=== PATIENT | female | born 1955 | race Caucasian/White ===

== ENCOUNTER 2020-08-20 16:34 | Observation (INO) | payer OTHER ==
--- OUTSIDE RECORDS SUMMARY | 2020-08-20 16:36 | XMS REPORT | Continuity of Care Document ---
:1955 Author Organization [facility] t Address [address] [place] [address] Care Team Providers Name Role Phone Kunal High MD, Sander Primary Care Physician [phone] Lab, Fam Pob I Attending Clinician Unavailable Doctor Unassigned, Name Attending Clinician Unavailable Problems This patient has no known problems. Allergies, Adverse Reactions, Alerts This patient has no known allergies or adverse reactions. Family History Family Member Diagnosis Comments Start Date Stop Date Source Natural sister Cancer [facility] thodist Social History Social Habit Start Date Stop Date Quantity Comments Source Tobacco use and 2016-08-06 2016-08-06 Never used [facility] ethodist exposure 00:00:00 00:00:00 Alcohol intake 2016-08-06 2016-08-06 Current drinker [place] [facility] 00:00:00 00:00:00 of alcohol (finding) Alcohol Comment 2016-01-16 2016-01-16 only on special [place] [facility] 00:00:00 00:00:00 ocassions Sex [birth year] [facility] ethodist 00:00:00 00:00:00 Smoking Status Start Date Stop Date Source Never smoker [facility] Medications Ordered Filled Start Stop Current Ordering Indication Dosage Frequency Signature Comments Components Source Medication Medication Date Date Medication? Clinician (SIG) Name Name aspirin Yes 81mg QD Take 81 mg [place] (ECOTRIN) 4-12 by mouth Method i 81 MG 14:39: daily. st enteric 03 coated tablet aspirin-tremaine Yes 1{tbl} Q6H Take 1 [place] taminophen- 4-12 tablet by Met hodi caffeine 14:39: mouth st (EXCEDRIN 03 every 6 MIGRAINE) (six) 250-250-65 hours as mg per needed for tablet headaches (as needed). MELATONIN Yes Take by [place] ORAL 4-12 mouth. Methodi 14:39: st 03 ibuprofen Yes 100mg Q6H Take 100 [place] (ADVIL) 100 4-12 mg by Methodi MG tablet 14:39: mouth st 03 every 6 (six) hours as needed for mild pain. citalopram Yes 20mg QD Take 20 mg [place] (CeleXA) 20 4-12 by mouth Meth surinder MG tablet 14:39: daily. st 03 LISINOPRIL Yes 20mg QD Take 20 mg [place] ORAL 4-12 by mouth Methodi 14:39: daily. Per st 03 patient Only temporary will eventually go back to the original strength prescribed with the diuretic ondansetron 2015-04 Yes 4mg Q8H Take 1 [place] (ZOFRAN, 2-02 tablet (4 Met hodi HYDROCHLORI 00:00: mg total) s t DE,) 4 MG 00 by mouth tablet every 8 (eight) hours as needed for nausea or vomiting. conjugated Yes Every [place] estrogens 01-21 night for Metho di (PREMARIN) 00:00: [address] vaginal 00 then three cream times a week. DEXILANT 60 Yes [place] mg capsule 12-29 Methodi 00:00: st 00 metoprolol Yes Gutier[place] tartrate 12-26 Methodi (LOPRESSOR) 00:00: st 25 MG 00 tablet lisinopril- Yes [place] hydrochloro 12-26 Methodi thiazide 00:00: st (PRINZIDE,Z 00 ESTORETIC) 20-12.5 mg per tablet amLODIPine Yes Matt (NORVASC) 12-26 Methodi 10 MG 00:00: st tablet 00 glimepiride Yes [place] (AMARYL) 2 12-26 Methodi MG tablet 00:00: st 00 ALPRAZolam Yes Matt (XANAX) 0.5 8-31 Methodi MG tablet 00:00: st 00 metFORMIN 2016-0 Yes Matt (FORTAMET) 8-23 Methodi 1000 MG 00:00: st (OSM) 24 hr 00 tablet Procedures This patient has no known procedures. Plan of Care Planned Activity Planned Date Details Comments Source Future Scheduled 2020-11-25 INFLUENZA VACCINE [facility] 00:00:00 [code = INFLUENZA VACCINE] Future Scheduled 2019 65+ PNEUMOCOCCAL [facility] 00:00:00 VACCINE (1 of 1 - PPSV23) [code = 65+ PNEUMOCOCCAL VACCINE (1 of 1 - PPSV23)] Future Scheduled 2004-02-07 BREAST CANCER [place] [facility] Test 00:00:00 SCREENING [code = BREAST CANCER SCREENING] Future Scheduled 2004-02-07 COLONOSCOPY SCREENING Ho shobha [facility] 00:00:00 [code = COLONOSCOPY SCREENING] Future Scheduled 2004-02-07 SHINGLES VACCINES (#1) H michel [facility] Test 00:00:00 [code = SHINGLES VACCINES (#1)] Future Scheduled 1970 COVID-19 VACCINE (1) Rocíoharrison zambrano [facility] Test 00:00:00 [code = COVID-19 VACCINE (1)] Encounters Start End Encounter Admission Attending Care Care Encounter Source Date/Time Date/Time Type Type Clinicians Facility Department ID 2020-05-28 2020-05-28 Laboratory Lab, [facility] [id number] 13:42:40 14:02:40 Only Fam P[facility] Health [id number] [place] [id number] Professio [id number] nal [address] 2020-05-08 2020-05-08 Laboratory Lab, [facility] [id number] 15:40:53 16:09:16 Only Fam Pob I Health [id number] [place] [id number] Professio [phone] nal 044 [address] 2020-05-08 2020-05-08 Letter Doctor GUSTAFSON [id number] 00:00:00 00:00:00 (Out) Unassigned, BRAULIO [id number] [place] [facility] [id number] 2020-05-08 2020-05-08 Letter Doctor S[place] [id number] 00:00:00 00:00:00 (Out) Unassigned, BRAULIO [id number] [place] [facility] [phone] [id number] Results This patient has no known results.
--- NOTE | 2020-08-20 20:55 | RAD REPORT ---
EXAM DESCRIPTION: Marie Single View08/20/2020 8:46 pm CLINICAL HISTORY: Shortness of breath COMPARISON: August 02, 2020 FINDINGS: The lungs appear clear of acute infiltrate. The heart is mildly enlarged IMPRESSION: No acute abnormalities displayed
[2020-08-20 21:06] LABS: Urine Blood 1+ (Negative); Urine Glucose Negative (Negative); Urine Protein Trace (Negative); Urine Specific Gravity <=1.005 (1.005-1.030); Urine pH 5.5 (5.0-7.0)
[2020-08-20 21:15] LABS: Absolute Lymphocytes (CBC) 1.8 K/uL (0.7-4.9); Basophils % 0.7 % (0-1.3); Lymphocytes % 33.1 % (15.3-44.8); MPV 9.1 fL (7.6-11.3); RBC Red Blood Cell Count 2.84 M/uL (3.86-4.86)
[2020-08-20 21:18] LABS: Protime INR 1.06
[2020-08-20 21:23] LABS: Urine Bacteria 20-50 /HPF (<20); Urine Mucus 2+ /HPF (NONE SEEN)
[2020-08-20 21:29] LABS: ALT/SGPT 16 U/L (12-78); AST/SGOT 14 U/L (15-37); Albumin 3.5 g/dL (3.4-5.0); Alkaline Phosphatase 91 U/L (45-117); BUN Blood Urea Nitrogen 11 mg/dL (7-18); Bicarbonate 21 mmol/L (21-32); Bilirubin Direct 0.2 mg/dL (0-0.2); Bilirubin Total 0.7 mg/dL (0.2-1.0); Glucose Level 79 mg/dL (74-106); Magnesium 2.1 mg/dL (1.8-2.4); NT PRO-BNP 1098 pg/mL (<125); Potassium 3.5 mmol/L (3.5-5.1); Protein, Total 7.3 g/dL (6.4-8.2); Sodium Level 140 mmol/L (136-145); Troponin (Emerg Dept Use Only) < 0.02 ng/mL (0.0-0.045)
[2020-08-20 21:51] LABS: Hematocrit 16.9 % (36.0-45.0)
[2020-08-20] MEDS ORDERED: CEFTRIAXONE/SWI 1gm 1 GM/10 ML SYR ONE (22:37)
--- NOTE | 2020-08-20 22:38 | ER ---
Nurse's Notes [facility] Name: Ying Woods Age: 65 yrs Sex: Female : 1955 Arrival Date: 08/20/2020 Time: 16:36 Bed 28 Private MD: Diagnosis: Anemia in chronic diseases classified elsewhere;Dyspnea, unspecified;Urinary tract infection, site not specified Presentation: 08/20 16:44 Chief complaint: Patient states: SOB for 1 month, fatigues and tires easily for [address] Dover today, had blood drawn. Was told to come to ED for blood transfusion. Painful urination for 1 week. No known fevers this week. Coronavirus screen: Client denies travel out of the [place] in the last 14 days. cough unrelated to allergies, difficulty breathing, fatigue, headache, shortness of breath, Client presents with at least one sign or symptom that may indicate coronavirus-19. Standard/surgical mask placed on the client. Ebola Screen: Patient denies travel to an Ebola-affected area in the 21 days before illness onset. Initial Sepsis Screen: Does the patient meet any 2 criteria? No. Patient's initial sepsis screen is negative. Does the patient have a suspected source of infection? No. Patient's initial sepsis screen is negative. Risk Assessment: Do you want to hurt yourself or someone else? Patient reports no desire to harm self or others. Onset of symptoms was July 20, 2020. 16:44 Method Of Arrival: Ambulatory ll1 16:44 Acuity: ANA 2 ll1 Historical: - Allergies: 16:49 No Known Allergies; ll1 - PMHx: 16:49 Hypertension; Anxiety; Diabetes - NIDDM; ll1 - PSHx: 16:49 Hysterectomy; Left Wrist; Right Knee; Cholecystectomy; Bladder Lift; ll1 - Immunization history:: Client reports receiving the 2nd dose of the Covid vaccine, Flu vaccine is up to date. - Social history:: Smoking status: Patient denies any tobacco usage or history of. Screenin:19 Abuse screen: Denies threats or abuse. Denies injuries from another. Nutritional zb screening: No deficits noted. Tuberculosis screening: No symptoms or risk factors identified. Fall Risk None identified. Assessment: 21:17 General: Appears in no apparent distress. comfortable, Behavior is cooperative, zb anxious. Pain: Denies pain. Neuro: Level of Consciousness is awake, alert, obeys commands, Oriented to person, place, time, situation, Moves all extremities. Full function. Cardiovascular: Capillary refill < 3 seconds Patient's skin is warm and dry. Respiratory: Reports shortness of breath on exertion Airway is patent Respiratory effort is even, unlabored, Respiratory pattern is regular, symmetrical. GI: Abdomen is round Abd is soft and non tender X 4 quads. : Reports burning with urination. Derm: Skin is intact, is healthy with good turgor, Skin is dry, Skin is pale, Skin temperature is cool. Musculoskeletal: Circulation, motion, and sensation intact. Range of motion: intact in all extremities. 21:59 Reassessment: ecp at bedside explaining care. zb 22:23 Reassessment: Patient appears in no apparent distress at this time. Patient and/or zb family updated on plan of care and expected duration. Pain level reassessed. Patient is alert, oriented x 3, equal unlabored respirations, skin warm/dry/pink. hospitalist at bedside. family remains at bedside as well. 08/21 01:05 Reassessment: pt has been consented for blood transfusion. iw 01:45 Reassessment: Patient appears in no apparent distress at this time. Patient and/or iw family updated on plan of care and expected duration. Pain level reassessed. Patient is alert, oriented x 3, equal unlabored respirations, skin warm/dry/pink. 1st unit PRBC checked off with Ernesto Garcia RN, transfusion initiated, VSS, see transfusion record for further charting. Vital Signs: 08/20 16:44 BP 118 / 62; Pulse 60; Resp 17; Temp 98.8; Pulse Ox 97% ; Weight 77.11 kg; Height 5 ft. ll1 4 in. (162.56 cm); Pain 3/10; 21:59 BP 116 / 67; Pulse 104; Resp 18; Pulse Ox 100% on R/A; zb 16:44 Body Mass Index 29.18 (77.11 kg, 162.56 cm) ll1 ED Course: 16:36 Patient arrived in ED. as 16:49 Triage completed. ll1 16:50 Arm band placed on. ll1 20:05 Oscar Erazo PA is PHCP. cp 20:05 Kaleb Teran MD is Attending Physician. cp 20:46 XRAY Chest (1 view) In Process Unspecified. EDMS 20:55 Inserted saline lock: 20 gauge in left antecubital area, using aseptic technique. Blood ds4 collected. 21:00 Kari Mak, RN is Primary Nurse. zb 21:07 Urine Microscopic Only Sent. ds4 21:19 Patient has correct armband on for positive identification. Placed in gown. Bed in low zb position. Call light in reach. priming machine operator on. Pulse ox on. NIBP on. Door closed. Noise minimized. Warm blanket given. 22:36 Jacinto Teran MD is Hospitalizing Provider. cp 08/21 03:56 No provider procedures requiring assistance completed. Patient admitted, IV remains in iw place. Administered Medications: 08/20 22:37 Drug: Rocephin (cefTRIAXone) 1 grams Route: IV; Rate: calculated rate; Site: left zb antecubital; Outcome: 22:37 Decision to Hospitalize by Provider. cp 08/21 03:56 Admitted to Med/surg iw Condition: good 03:56 Discharge instructions given to patient, Instructed on the need for admit, Demonstrated iw understanding of instructions. 03:57 Patient left the ED. iw Signatures: Dispatcher [employer] EDMS Sheeba Griffin as Era Velásquez, LORENE PAULSON iw Davey Kyle ds4 Oscar Erazo PA PA cp Cyrus Clarke RN RN ll1 Kari Mak RN RN zb
--- NOTE | 2020-08-20 22:38 | EDPHYS ---
Physician Documentation [facility] Name: Ying Woods Age: 65 yrs Sex: Female : 1955 Arrival Date: 08/20/2020 Time: 16:36 Bed 28 Private MD: ED Physician Kaleb Teran HPI: 08/20 20:15 This 65 yrs old Female presents to ER via Ambulatory with complaints of sent cp by Dr Dover for blood transfusion. 20:15 The patient has shortness of breath with light activity. cp 20:15 Onset: The symptoms/episode began/occurred 1 month(s) ago. Duration: The symptoms are cp continuous, and are steadily getting worse. Associated signs and symptoms: Pertinent negatives: chest pain, productive cough, diaphoresis, fever. Severity of symptoms: in the emergency department the symptoms are unchanged despite home interventions. The patient has been recently seen by a physician: Dr. Dover earlier today, with similar presenting complaints, and apparently given a diagnosis of anemia, and was sent to the [facility] Emergency Department for further evaluation. Historical: - Allergies: 16:49 No Known Allergies; ll1 - PMHx: 16:49 Hypertension; Anxiety; Diabetes - NIDDM; ll1 - PSHx: 16:49 Hysterectomy; Left Wrist; Right Knee; Cholecystectomy; Bladder Lift; ll1 - Immunization history:: Client reports receiving the 2nd dose of the Covid vaccine, Flu vaccine is up to date. - Social history:: Smoking status: Patient denies any tobacco usage or history of. ROS: 20:20 Constitutional: Negative for body aches, chills, fever, poor PO intake. cp 20:20 Eyes: Negative for injury, pain, redness, and discharge. cp 20:20 ENT: Negative for ear pain, sore throat, difficulty swallowing, difficulty handling secretions. 20:20 Cardiovascular: Positive for edema, Negative for chest pain, palpitations. 20:20 Respiratory: Positive for shortness of breath, on exertion. Negative for cough, wheezing. 20:20 Abdomen/GI: Negative for abdominal pain, nausea, vomiting, and diarrhea, constipation, black/tarry stool, rectal bleeding. 20:20 Back: Negative for pain at rest, pain with movement. 20:20 Neuro: Negative for altered mental status, dizziness, headache, syncope, weakness. 20:20 All other systems are negative. Exam: 20:25 Constitutional: The patient appears in no acute distress, alert, awake, cp non-diaphoretic, non-toxic, well developed, well nourished. 20:25 Head/Face: Normocephalic, atraumatic. cp 20:25 Eyes: Periorbital structures: appear normal, Conjunctiva: normal, no exudate, no injection, Sclera: no appreciated abnormality, Lids and lashes: appear normal, bilaterally. 20:25 ENT: External ear(s): are unremarkable, Nose: is normal, Posterior pharynx: Airway: no evidence of obstruction, patent. 20:25 Neck: ROM/movement: is normal, is supple, without pain, no range of motions limitations. 20:25 Chest/axilla: Inspection: normal, Palpation: is normal, no crepitus, no tenderness. 20:25 Cardiovascular: Rate: normal, Rhythm: regular, Edema: ankle edema, that is mild, JVD: is not appreciated. 20:25 Respiratory: the patient does not display signs of respiratory distress, Respirations: normal, no use of accessory muscles, no retractions, labored breathing, is not present, Breath sounds: are clear throughout, no decreased breath sounds. 20:25 Abdomen/GI: Inspection: abdomen appears normal, Palpation: abdomen is soft and non-tender, in all quadrants. 20:25 Neuro: Orientation: to person, place \T\ time. Mentation: is normal, Motor: moves all fours, strength is normal. 21:33 ECG was reviewed by the Attending Physician. cp 22:00 Abdomen/GI: Rectal exam: Stool: brown, guaiac negative. cp Vital Signs: 16:44 BP 118 / 62; Pulse 60; Resp 17; Temp 98.8; Pulse Ox 97% ; Weight 77.11 kg; Height 5 ft. ll1 4 in. (162.56 cm); Pain 3/10; 21:59 BP 116 / 67; Pulse 104; Resp 18; Pulse Ox 100% on R/A; zb 16:44 Body Mass Index 29.18 (77.11 kg, 162.56 cm) ll1 MDM: 20:10 Patient medically screened. cp 20:30 Differential diagnosis: Anemia CHF exacerbation, Myocardial Infarction pulmonary edema, cp Pulmonary Embolism Unstable Angina. 22:15 Data reviewed: vital signs, nurses notes, lab test result(s), EKG, radiologic studies, cp plain films, and as a result, I will admit patient. 22:15 Test interpretation: by ED physician or midlevel provider: ECG, plain radiologic cp studies. Counseling: I had a detailed discussion with the patient and/or guardian regarding: the historical points, exam findings, and any diagnostic results supporting the discharge/admit diagnosis, lab results, radiology results, the need for further work-up and treatment in the hospital. Physician consultation: Shorty ONOFRE was called at 22:10, was contacted at 22:10, regarding admission, to the telemetry unit. patient's condition, and will see patient in ED, shortly. 08/20 20:06 Order name: Urine Microscopic Only; Complete Time: 21:24 cp 08/20 21:24 Interpretation: Normal except: UWBC >50; URBC 5-10; UBACT 20-50. cp 08/20 20:15 Order name: Basic Metabolic Panel cp 08/20 20:15 Order name: CBC with Diff cp 08/20 20:15 Order name: LFT's cp 08/20 20:15 Order name: Magnesium cp 08/20 20:15 Order name: NT PRO-BNP cp 08/20 20:15 Order name: PT-INR; Complete Time: 21:41 cp 08/20 20:15 Order name: Troponin (emerg Dept Use Only); Complete Time: 23:35 cp 08/20 20:15 Order name: Basic Metabolic Panel; Complete Time: 23:35 EDMS 08/20 21:32 Interpretation: Normal except: CL 109; GFR 65. cp 08/20 20:15 Order name: CBC with Automated Diff; Complete Time: 23:35 EDMS 08/20 22:01 Interpretation: Normal except: RBC 2.84; HGB 4.6; HCT 16.9; MCV 59.4; MCH 16.2; MCHC cp 27.2; RDW 19.8; MN% 14.8. 08/20 20:15 Order name: Liver (Hepatic) Function; Complete Time: 23:35 EDMS 08/20 23:36 Interpretation: Normal except: AST 14; GLOB 3.8; A/G 0.9. cp 08/20 20:15 Order name: Magnesium; Complete Time: 23:35 EDMS 08/20 20:15 Order name: NT PRO-BNP; Complete Time: 23:35 [facility] 08/20 20:33 Order name: Type And Screen 08/20 20:15 Order name: XRAY Chest (1 view); Complete Time: 21:12 08/20 21:05 Order name: Urine Dipstick-Ancillary; Complete Time: 21:12 [facility] 08/20 21:12 Interpretation: Normal except: UBLD 1+; UPROT Trace; U NIT Positive; UESTR 3+. 08/20 21:24 Order name: Urine Culture [facility] 08/20 21:51 Order name: CBC Smear Scan; Complete Time: 23:35 [facility] 08/20 22:12 Order name: Ferritin 08/20 22:12 Order name: TIBC 08/20 22:15 Order name: Transferrin Sat/Iron Binding; Complete Time: 23:35 [facility] 08/20 23:36 Interpretation: Abnormal. 08/20 22:15 Order name: Ferritin; Complete Time: 23:35 [facility] 08/20 22:16 Order name: Packed RBC Leukored [facility] 08/20 22:51 Order name: Haptoglobin [facility] 08/20 22:53 Order name: Lactic Dehydrogenase; Complete Time: 23:35 [facility] 08/21 02:10 Order name: SARS-COV-2 RT PCR [facility] 08/20 20:06 Order name: Urine Dipstick-Ancillary (obtain specimen); Complete Time: 21:07 08/20 20:15 Order name: EKG; Complete Time: 20:15 08/20 20:15 Order name: Cardiac monitoring; Complete Time: 21:17 08/20 20:15 Order name: EKG - Nurse/Tech; Complete Time: 21:53 08/20 20:15 Order name: IV Saline Lock; Complete Time: 20:58 08/20 20:15 Order name: Labs collected and sent; Complete Time: 20:58 08/20 20:15 Order name: O2 Per Protocol; Complete Time: 20:58 08/20 20:15 Order name: O2 Sat Monitoring; Complete Time: 20:58 cp EC:33 Rate is 94 beats/min. Rhythm is regular. MD interval is normal. QRS interval is normal. cp QT interval is normal. T waves are Inverted in lead aVR. Interpreted by me. Reviewed by me. Administered Medications: 22:37 Drug: Rocephin (cefTRIAXone) 1 grams Route: IV; Rate: calculated rate; Site: left zb antecubital; Disposition: 08/21 04:30 Co-signature as Attending Physician, Kaleb Teran MD. rn Disposition: 08/20/20 22:37 Hospitalization ordered by Jacinto Teran for Observation. Preliminary diagnosis are Anemia in chronic diseases classified elsewhere, Dyspnea, unspecified, Urinary tract infection, site not specified. - Bed requested for Telemetry/MedSurg (observation). - Status is Observation. iw - Condition is Stable. - Problem is new. - Symptoms have improved. Signatures: Dispatcher [employer] EDWV Karyn Siegel RN RN dw Williams, Irene, RN RN Kaleb Teran MD MD rn Page, Corey, PA PA cp Lewis, Lynsay, RN RN ll1 Kari Mak RN RN zb Corrections: (The following items were deleted from the chart) 08/20 22:14 22:13 Ferritin ordered. EDWV EDWV 22:15 22:13 Transferrin Sat/Iron Binding ordered. EDWV EDMS 22:52 22:51 Lactic Dehydrogenase ordered. EDWV EDWV 23:37 22:37 Hospitalization Ordered by Jacinto Teran MD for Observation. Preliminary cp diagnosis is Anemia in chronic diseases classified elsewhere; Dyspnea, unspecified. Bed requested for Telemetry/MedSurg (observation). Status is Observation. Condition is Stable. Problem is new. Symptoms have improved. cp 08/21 00:43 08/20 23:36 CORONAVIRUS+MR.LAB.BRZ ordered. EDWV EDWV 08/21 02:20 08/20 23:37 08/20/2020 22:37 Hospitalization Ordered by Jacinto Teran MD for dw Observation. Preliminary diagnosis is Anemia in chronic diseases classified elsewhere; Dyspnea, unspecified; Urinary tract infection, site not specified. Bed requested for Telemetry/MedSurg (observation). Status is Observation. Condition is Stable. Problem is new. Symptoms have improved. cp 08/21 03:57 02:20 08/20/2020 22:37 Hospitalization Ordered by Jacinto Teran MD for Observation. iw Preliminary diagnosis is Anemia in chronic diseases classified elsewhere; Dyspnea, unspecified; Urinary tract infection, site not specified. Bed requested for Telemetry/MedSurg (observation). Status is Observation. Condition is Stable. Problem is new. Symptoms have improved. dw
[2020-08-20 22:49] LABS: Blood Morphology Comment NOTED (NOT SEEN); Hypochromasia 3+; Ovalocytes 1+; Platelet Estimate ADEQ; Polychromasia 1+; Teardrop Cell 2+; White Blood Cell Scan OK (OK)
[2020-08-20 22:50] LABS: Ferritin 4.3 ng/mL (8-388); Transferrin 369 mg/dL (200-360)
[2020-08-21] MEDS ORDERED: NA CHLORIDE 0.9% 250 ML ONE ×2 (01:46→12:06)
--- NOTE | 2020-08-21 02:17 | P.HP ---
Certification for Inpatient Patient admitted to: Observation With expected LOS: <2 Midnights Patient will require the following post-hospital care: None Practitioner: I am a practitioner with admitting privileges, knowledge of patient current condition, hospital course, and medical plan of care. Services: Services provided to patient in accordance with Admission requirements found in Title 42 Section 412.3 of the Code of Federal Regulations <Shorty Bello - Last Filed: 08/21/20 02:10> Patient History Date of Service: 08/21/20 Primary Care Provider: Dr. Dover Reason for admission: Symptomatic Anemia History of Present Illness: 65-year-old female with history of diabetes mellitus type 2, hyp ertension, anxiety presents emergency department for 3-4 months of increasing dyspnea on exertion, lethargy, weakness. Evaluation in the emergency department demonstrates hemoglobin 4.6 hematocrit 16.9 MCV 59.4. Patient denies known history of iron-deficiency anemia, reports normal bowel habits without any melena, bright red blood per rectum, tarry stools. Patient denies any vaginal bleeding or hematemesis. Additional labs obtained in the emergency department demonstrate iron level 12 TIBC 517 transferrin 369 transferrin saturation percent 2.3 ferritin level 4.3. As patient will require multiple units of blood and further evaluation ED provider wishes to admit for further management. - Past Medical/Surgical History Diabetic: Yes -: Diabetes mellitus type 2 -: Hypertension -: Anxiety Psychosocial/ Personal History: Patient lives at home with her family is retired - Family History Mother -: Cancer Brother -: Cancer Sister -: Diabetes, Cancer - Social History Smoking Status: Never smoker Alcohol use: No CD- Drugs: No Caffeine use: No Place of Residence: Home <Shorty Bello - Last Filed: 08/21/20 02:10> Date of Service: 08/21/20 <Jacinto Teran - Last Filed: 08/21/20 21:21> Allergies No Known Allergies Allergy (Verified 05/16/15 08:02) Home Medications: ALPRAZolam [Xanax*] 0.5 mg PO TID 10/11/13 Glimepiride [Amaryl] 2 mg PO BID 10/11/13 Lisinopril/Hydrochlorothiazide [Zestoretic 20-12.5 mg Tablet] 1 tab PO DAILY 10/11/13 Metformin HCl [Glucophage] 500 mg PO BID 10/11/13 Metoprolol Tartrate [Lopressor*] 1 tab PO DAILY 10/11/13 Amlodipine Besylate [Norvasc] 5 mg PO DAILY 05/16/15 Melatonin 10 mg PO BEDTIME 05/16/15 Pantoprazole [Protonix Tab*] 40 mg PO DAILY #30 tab 08/12/16 Ascorbic Acid [Vitamin C*] 500 mg PO DAILY 30 Days #30 tablet 08/21/20 Ferrous Sulfate [Ferrous Sulfate*] 325 mg PO DAILY 30 Days #30 tab 08/21/20 Glimepiride 2 mg PO BID 08/21/20 levoFLOXacin [Levaquin] 750 mg PO DAILY 7 Days #7 tab 08/21/20 Review of Systems 10-point ROS is otherwise unremarkable General: Weakness, Malaise Respiratory: Shortness of Breath, SOB with Excertion <Shorty Bello - Last Filed: 08/21/20 02:10> Physical Examination - Physical Exam General: Alert, In no apparent distress HEENT: Atraumatic, PERRLA, Other (Mucous membranes moist, pale) Neck: Supple, 2+ carotid pulse no bruit, No LAD Respiratory: Clear to auscultation bilaterally, Normal air movement Cardiovascular: Regular rate/rhythm, Normal S1 S2 Gastrointestinal: Normal bowel sounds, No tenderness Musculoskeletal: No tenderness Integumentary: No rashes Neurological: Normal speech, Normal strength at 5/5 x4 extr, Normal tone, Normal affect - Studies Laboratory Data (last 24 hrs) 08/20/20 20:55: PT 12.2, INR 1.06 08/20/20 20:55: WBC 5.40, Hgb 4.6 L*, Hct 16.9 L*, Plt Count 168 08/20/20 20:55: Sodium 140, Potassium 3.5, BUN 11, Creatinine 0.87, Glucose 79, Magnesium 2.1, Total Bilirubin 0.7, AST 14 L, ALT 16, Alkaline Phosphatase 91 <Shorty Bello - Last Filed: 08/21/20 02:10> - Studies Laboratory Data (last 24 hrs) 08/20/20 20:55: PT 12.2, INR 1.06 08/20/20 20:55: WBC 5.40, Hgb 4.6 L*, Hct 16.9 L*, Plt Count 168 08/20/20 20:55: Sodium 140, Potassium 3.5, BUN 11, Creatinine 0.87, Glucose 79, Magnesium 2.1, Total Bilirubin 0.7, AST 14 L, ALT 16, Alkaline Phosphatase 91 <Jacinto Teran - Last Filed: 08/21/20 21:21> Assessment and Plan - Plan Assessment Severe symptomatic microcytic anemia Diabetes mellitus type 2 Hypertension Anxiety Plan Severe symptomatic microcytic anemia: Hemoccult-negative, will repeat. Continue with packed red blood cell transfusion to maintain hemoglobin greater than 7. Labs demonstrate iron-deficiency anemia, will continue with iron supplementation, vitamin-C supplementation. Patient reports that she had a colonoscopy approximately 1-2 years ago without significant abnormal findings. Patient informed that she will need to follow up with GI for colonoscopy and further evaluation. DVT prophylaxis with SCDs. Patient may benefit from IV i imani infusions. Diabetes mellitus type 2: A.c. HS Accu-Cheks scale insulin therapy. Hypertension: Continue home med Anxiety: Continue home meds Discharge Plan: Home Plan to discharge in: 24 Hours - Advance Directives Does patient have a Living Will: No Does patient have a Durable POA for Healthcare: No - Code Status/Comfort Care Code Status Assessed: Yes (Full code) Critical Care: No Time Spent Managing Pts Care (In Minutes): 55 <Shorty Bello - Last Filed: 08/21/20 02:10> - Plan Plan of care reviewed as noted above by Shorty Bello symptomatic microcytic anemia - hemeoccult negative in ED, labs with iron- deficiency anemia, no other obvious signs of bleeding PRBCs ordered, f/u post-transfusion H/H <Jacinto Teran - Last Filed: 08/21/20 21:21>
[2020-08-21] MEDS ORDERED: ONDANSETRON 4 MG/2 ML VIAL IV PRN (04:18)
[2020-08-21] MEDS ORDERED: ACETAMINOPHEN 500 MG TAB PO PRN (04:18)
[2020-08-21 05:09] VITALS: BMI 29.2
[2020-08-21 06:03] VITALS: O2SAT 96
[2020-08-21 06:09] LABS: Albumin 3.2 g/dL (3.4-5.0); Bilirubin Total 0.8 mg/dL (0.2-1.0); Protein, Total 6.4 g/dL (6.4-8.2); Thyroid Stimulating Hormone 1.87 uIU/mL (0.360-3.740)
[2020-08-21] MEDS ORDERED: PANTOPRAZOLE 40MG TABLET PO SCH (06:30)
[2020-08-21] MEDS: INSULIN -REGULAR HUMAN 50 UNIT/0.5 ML ML SQ SCH ×3 (07:30→15:34)
[2020-08-21] MEDS ORDERED: FERROUS SULFATE 325 MG TAB PO SCH (09:00)
[2020-08-21] MEDS ORDERED: CEFTRIAXONE/SWI 1gm 1 GM/10 ML SYR IV SCH (09:00)
[2020-08-21] MEDS ORDERED: CEFTRIAXONE 1 GM/NS 50 ML 1 GM/50 ML BAG IV SCH (09:00)
[2020-08-21] MEDS ORDERED: ASCORBIC ACID 500 MG TABLET PO SCH (09:00)
--- NOTE | 2020-08-21 11:14 | EKG ---
Test Date: 2020-08-20 Test Time: 21:26:10 Informatics Pharmacist: FRANCO MEASUREMENT RESULTS: Intervals: Rate: 94 VA: 156 QRSD: 84 QT: 408 QTc: 510 [place]: P: 19 VA: 156 QRS: 21 T: 40 INTERPRETIVE STATEMENTS: Sinus rhythm with premature atrial complexes with aberrant conduction Possible Left atrial enlargement Prolonged QT Abnormal ECG Compared to ECG 08/12/2016 08:17:26 Atrial premature complex(es) now present Aberrant conduction of supraventricular beat(s) now present Prolonged QT interval now present Electronically Signed On 08-21-20 11:13:20 CDT by Flxe Hernández
[2020-08-21 16:32] VITALS: BP 125/68; TEMP 99.4
[2020-08-21 17:05] LABS: Hematocrit 25.3 % (36.0-45.0)
--- NOTE | 2020-08-21 21:26 | P.DS ---
Admission Date: 08/20/20 Discharge Date: 08/21/20 Primary Care Provider: Dr. Dover Disposition: ROUTINE DISCHARGE Discharge Condition: GOOD Reason for Admission: Symptomatic Anemia Procedures: CXR (08/20): no acute abnormalities displayed. lungs appear clear of acute infiltrate. Problem List: Severe symptomatic microcytic anemia, iron deficiency UTI, cystitis Diabetes mellitus type 2, non-insulin dependent Hypertension Anxiety Brief History of Present Illness: 65-year-old female with history of diabetes mellitus type 2, hypertens ion, anxiety presents emergency department for 3-4 months of increasing dyspnea on exertion, lethargy, weakness. Evaluation in the emergency department demonstrates hemoglobin 4.6 hematocrit 16.9 MCV 59.4. Patient denies known history of iron-deficiency anemia, reports normal bowel habits without any melena, bright red blood per rectum, tarry stools. Patient denies any vaginal bleeding or hematemesis. Additional labs obtained in the emergency department demonstrate iron level 12 TIBC 517 transferrin 369 transferrin saturation percent 2.3 ferritin level 4.3. As patient will require multiple units of blood and further evaluation ED provider wishes to admit for further management. Hospital Course: Patient was transfused 3 units of PRBCs. She had significant improvement in her symptoms, and was ambulating around her room without dyspnea/lightheadedness. Her Hgb increased from 4.6 to 7.5 Patient reportedly feeling much better and requesting to be discharged home. She reported bladder pressure and dysuria. Her UA was consistent with UTI and she was discharged with levaquin. She was advised to follow up with PCP in 3-5 days and to follow up with GI (Dr. Shah) in 2-3 weeks. Although hemoccult negative in ED, she would benefit from EGD/colonoscopy. Discharged with PO Iron and vitamin C. Vital Signs/Physical Exam: Physical Exam General: Alert, In no apparent distress HEENT: Atraumatic, PERRLA, MMM Neck: Supple, 2+ carotid pulse no bruit, No LAD Respiratory: Clear to auscultation bilaterally, Normal air movement Cardiovascular: Regular rate/rhythm, Normal S1 S2 Gastrointestinal: Normal bowel sounds, No tenderness Musculoskeletal: No tenderness Integumentary: No rashes Neurological: Normal speech, Normal strength at 5/5 x4 extr, Normal affect Temp Pulse Resp BP Pulse Ox 99.4 F 97 H 16 125/68 95 08/21/20 16:00 08/21/20 16:00 08/21/20 16:00 08/21/20 16:00 08/21/20 16:00 Laboratory Data at Discharge: WBC 5.40 K/uL (4.3-10.9) 08/20/20 20:55 Hgb 7.5 g/dL (12.0-15.0) L* D 08/21/20 16:48 Hct 25.3 % (36.0-45.0) L D 08/21/20 16:48 Plt Count 168 K/uL (152-406) 08/20/20 20:55 PT 12.2 SECONDS (9.5-12.5) 08/20/20 20:55 INR 1.06 08/20/20 20:55 Sodium 144 mmol/L (136-145) 08/21/20 05:16 Potassium 4.0 mmol/L (3.5-5.1) 08/21/20 05:16 BUN 10 mg/dL (7-18) 08/21/20 05:16 Creatinine 0.67 mg/dL (0.55-1.3) 08/21/20 05:16 Glucose 78 mg/dL (74-106) 08/21/20 05:16 Magnesium 2.0 mg/dL (1.8-2.4) 08/21/20 05:16 Total Bilirubin 0.8 mg/dL (0.2-1.0) 08/21/20 05:16 AST 13 U/L (15-37) L 08/21/20 05:16 ALT 16 U/L (12-78) 08/21/20 05:16 Alkaline Phosphatase 80 U/L (45-117) 08/21/20 05:16 Triglycerides 76 mg/dL (<150) 08/21/20 05:16 Cholesterol 107 mg/dL (<200) 08/21/20 05:16 HDL Cholesterol 37 mg/dL (40-60) L 08/21/20 05:16 Cholesterol/HDL Ratio 2.89 08/21/20 05:16 Home Medications: ALPRAZolam [Xanax*] 0.5 mg PO TID 10/11/13 Glimepiride [Amaryl] 2 mg PO BID 10/11/13 Lisinopril/Hydrochlorothiazide [Zestoretic 20-12.5 mg Tablet] 1 tab PO DAILY 10/11/13 Metformin HCl [Glucophage] 500 mg PO BID 10/11/13 Metoprolol Tartrate [Lopressor*] 1 tab PO DAILY 10/11/13 Amlodipine Besylate [Norvasc] 5 mg PO DAILY 05/16/15 Melatonin 10 mg PO BEDTIME 05/16/15 Pantoprazole [Protonix Tab*] 40 mg PO DAILY #30 tab 08/12/16 Ascorbic Acid [Vitamin C*] 500 mg PO DAILY 30 Days #30 tablet 08/21/20 Ferrous Sulfate [Ferrous Sulfate*] 325 mg PO DAILY 30 Days #30 tab 08/21/20 Glimepiride 2 mg PO BID 08/21/20 levoFLOXacin [Levaquin] 750 mg PO DAILY 7 Days #7 tab 08/21/20 New Medications: RX: Ferrous Sulfate [Ferrous Sulfate*] 325 mg PO DAILY 30 Days #30 tab levoFLOXacin [Levaquin] 750 mg PO DAILY 7 Days #7 tab RX: Ascorbic Acid [Vitamin C*] 500 mg PO DAILY 30 Days #30 tablet Physician Discharge Instructions: You were found to have severe anemia, with iron deficiency. You were transfused 3 units of blood with appropriate response. There was no evidence of bleeding. You were also found to have a urinary tract infection. You are discharged to continue your home medications as previously prescribed. New prescriptions for iron with vitamin C, and an antibiotic (levofloxacin) for your UTI. Please follow up with your PCP in 3-5 days Follow up with GI (Dr. Shah) in 2-3 weeks to discuss colonoscopy and/or EGD. Diet: ADA Activity: Ad vicente Followup: Simba Dover MD [Primary Care Provider] - (call to schedule appointment) Time spent managing pt's care (in minutes): 35
== END 2020-08-21 18:30 | disposition home or self-care (01) ==
LOC: ER 16:34 → ERHOLD 08-21 00:43 → 2ND 08-21 02:54
PROVIDERS: ADMIT Hospitalist; ATTEND Hospitalist
PROC: 30233N1 Transfusion of Nonautologous Red Blood Cells into Peripheral Vein, Percutaneous Approach (ICD-10-PCS; principal; 2020-08-20)
DX: D50.9 Iron deficiency anemia, unspecified (principal); N30.90 Cystitis, unspecified without hematuria; E11.9 Type 2 diabetes mellitus without complications; I10 Essential (primary) hypertension; F41.9 Anxiety disorder, unspecified; Z20.822 Contact with and (suspected) exposure to COVID-19; Z90.49 Acquired absence of other specified parts of digestive tract; Z90.710 Acquired absence of both cervix and uterus; Z80.9 Family history of malignant neoplasm, unspecified; Z83.3 Family history of diabetes mellitus
CPT/HCPCS: 93005; 87088; 85025; 87086; 80048; 36415; 86900; 83735 ×2; 86850; 83615; 85610; 80061; 86901; 82947 ×2; 80076; 84443; 85018; 85014; 83036; 84484; 84439; 82728; 83540; 83010; 80053; 83880; 84466; 71045; 36430; U0003; J0696 ×2; P9016 ×3; J7050 ×2; 81003; 81015; 87077; 87186; 96374; 99285; G0378